=== PATIENT | female | born 1985 | race Caucasian/White ===

== ENCOUNTER 2016-08-12 04:41 | Emergency (ER) | payer OTHER ==
[~2016-08-12] VITALS: Ht 162.6 cm; Wt 43.5 kg
[2016-08-12 04:42] VITALS: BP 117/85
[2016-08-12] MEDS ORDERED: NAPROSYN500 MG PO (05:35)
[2016-08-12] MEDS ORDERED: NORCO 5-325 TA1 EACH PO (05:35)
== END 2016-08-12 05:36 ==
LOC: ER 04:41
DX: S01.01XA Laceration without foreign body of scalp, initial encounter (principal); Y04.0XXA Assault by unarmed brawl or fight, initial encounter; Y93.89 Activity, other specified; Y92.810 Car as the place of occurrence of the external cause; Y99.8 Other external cause status